=== PATIENT | male | born 1960 | race African-American/Black ===

== ENCOUNTER → 2016-07-22 | Outpatient (CLI) | payer BC ==
[2015-09-09 11:00] VITALS: BP 123/80
== END ==
LOC: LAB 18:35
PROVIDERS: ATTEND Internal Medicine Gastroenterology
DX: B96.81 Helicobacter pylori [H. pylori] as the cause of diseases classified elsewhere (principal)
CPT/HCPCS: 87338

== ENCOUNTER 2016-08-21 07:05 | Day surgery (SDC) | payer BC ==
[2016-08-21] MEDS ORDERED: D5 LR 1000 ML 1,000 ML IV ONE (07:19)
[2016-08-21] MEDS ORDERED: DIPRIVAN VIAL 20 ML ONE (09:08)
[2016-08-21 09:46] VITALS: BP 124/79
== END 2016-08-21 09:48 | disposition home or self-care (01) ==
LOC: SURG1 07:05
PROVIDERS: ATTEND Internal Medicine Gastroenterology
PROC: 0DJD8ZZ Inspection of Lower Intestinal Tract, Via Natural or Artificial Opening Endoscopic (ICD-10-PCS; principal; 2016-08-21 09:30)
DX: K64.8 Other hemorrhoids (principal); Z86.010 Personal history of colon polyps; Z80.0 Family history of malignant neoplasm of digestive organs
CPT/HCPCS: A4217; J3490; J7120